=== PATIENT | female | born 1980 | race Hispanic/Latino ===

== ENCOUNTER 2017-06-26 11:50 | Emergency (ER) | payer MEDICAID ==
[2017-06-26 12:19] LABS: BASOPHILS % (AUTO) 0.8 % (0.0-5.0); EOSINOPHILS % (AUTO) 0.3 % (0.0-8.0); HEMATOCRIT 31.6 % (36-48); LYMPHOCYTES % (AUTO) 16.5 % (21.0-51.0); MEAN CORPUSCULAR HEMOGLOBIN 20.9 pg (27.0-33.0); MEAN CORPUSCULAR HGB CONC 32.6 g/dL (32.0-36.0); MEAN CORPUSCULAR VOLUME 64.1 fL (79-99); NEUTROPHILS % (AUTO) 74.4 % (40.0-77.0); NUCLEATED RED BLOOD CELLS 0.1 % (0.0-0.19); PLATELET COUNT (AUTO) 607 K/uL (130-400); RED BLOOD CELL COUNT(AUTO) 4.93 MIL/uL (4.00-5.50); RED CELL DISTRIBUTION WIDTH 17.7 % (11.0-15.5); WHITE BLOOD COUNT (AUTO) 10.1 K/uL (4.8-10.8)
[2017-06-26 12:29] LABS: APPEARANCE,URINE Turbid (CLEAR); BILIRUBIN,URINE Negative (NEGATIVE); COLOR,URINE Yellow (YELLOW); GLUCOSE, URINE (UA) Negative (NEGATIVE); KETONES,URINE Trace mg/dL (NEGATIVE); LEUKOCYTE ESTERASE ,URINE Small (NEGATIVE); NITRATE,URINE Negative (NEGATIVE); OCCULT BLOOD,URINE Large (NEGATIVE); PROTEIN,URINE Trace (NEGATIVE); UROBILINOGEN,URINE 0.2 mg/dL (0.2-1.0)
[2017-06-26 12:46] LABS: BILIRUBIN,TOTAL 0.5 mg/dL (0.2-1.0); TOTAL PROTEIN, SERUM 8.4 g/dL (6.0-8.3)
[2017-06-26] MEDS ORDERED: KETOROLAC TROMETHAMINE 30MG/ML ONE (12:51)
[2017-06-26] MEDS ORDERED: ONDANSETRON HCL MDV 20ML 2 MG/ML VIAL ONE (12:51)
[2017-06-26 13:03] LABS: POTASSIUM 2.7 mmol/L (3.5-5.1)
[2017-06-26 13:15] LABS: BACTERIA,URINE Moderate /HPF (None Seen); MUCUS,URINE Many LPF (None Seen); SQUAMOUS EPITHELIAL CELL,UR Many /HPF (0-2); WBC,URINE 0-1 /HPF (0-1)
[2017-06-26] MEDS ORDERED: MAG HYDROX/AL HYDROX/SIMETH ES 30 ML SUSP UDCUP ONE (14:23)
[2017-06-26] MEDS ORDERED: POTASSIUM BICARB/CIT AC 25 MEQ TABLET.EFF ONE (14:23)
[2017-06-26] MEDS ORDERED: LIDOCAINE HCL 2% VISCOUS 15 ML UDCUP ONE (14:23)
[2017-06-26] MEDS ORDERED: POTASSIUM CHLORIDE 20 MEQ ERTAB PO ONE (14:36)
== END 2017-06-26 15:29 | disposition home or self-care (01) ==
LOC: EDH 11:50
DX: K29.00 Acute gastritis without bleeding (principal); E87.6 Hypokalemia; K21.9 Gastro-esophageal reflux disease without esophagitis; Z86.018 Personal history of other benign neoplasm; Z87.891 Personal history of nicotine dependence
CPT/HCPCS: 36415; 76705; 80053; 81001; 81025; 83690; 85025; 96374; 96375; 99285; J1885

== ENCOUNTER 2024-09-20 12:36 | Emergency (ER) | payer MEDICAID, OTHER ==
[~2024-09-20] VITALS: Ht 157.5 cm; Wt 77.1 kg
--- NOTE | 2024-09-20 12:48 | ERN ---
ED Note History of Present Illness Stated Complaint: BLOODY STOOL Chief Complaint: Diarrhea Time Seen by MD: 12:37 Dictation: PATIENT IS A 44-YEAR-OLD FEMALE STATES SHE HAS HAD DIARRHEA FOR SEVEN DAYS IN THE LAST DAY OR TWO SHE SEEN SOME BLOOD IN THE STOOL. SHE STATES SHE HAS ALSO HAD CRAMPING TO HER ABDOMEN FOR THE SAME AMOUNT OF TIME. NO FEVER NO CHILLS NO NAUSEA VOMITING. NO PRIMARY CARE DOCTOR. SHE STATES SHE HAS A HISTORY OF GASTRIC ISSUES HOWEVER ALWAYS GOES TO EMERGENCY ROOMS. SHE STATES EVERYONE IN THE HOME EATEN THE SAME FOOD SHE IS EATEN AND NOBODY ELSE IS SICK. Allergies: Coded Allergies: No Known Drug Allergies (Verified Allergy, 12/07/11) Home Meds Active Scripts Dicyclomine HCl (Bentyl) 20 Mg Tab, 20 MG PO Q6HPRN PRN for Abdominal cramping/pain, #20 TAB Prov:HEBER SORENSON NP 09/20/24 Ciprofloxacin HCl (Cipro) 500 Mg Tablet, 1 TAB PO BID for 7 Days, #14 TAB 0 Refills Prov:HEBER SORENSON NP 09/20/24 Metronidazole (Metronidazole) 250 Mg Tablet, 1 TAB PO TID for 7 Days, #21 TAB 0 Refills Prov:HEBER SORENSON [employer] 09/20/24 Past Medical History Past Medical History: GERD Surgical History: Surgical History Other: LIPOMA History: Not Applicable LMP: Sep 10, 2024 RN Note Reviewed/Agreed w/PFSH: Yes Review of System Dictation CONSTITUTIONAL: NEGATIVE EXCEPT FOR HPI HEAD/FACE: NEGATIVE EXCEPT FOR HPI EENT: NEGATIVE EXCEPT FOR HPI RESPIRATORY: NEGATIVE EXCEPT FOR HPI GASTROINTESTINAL/ABDOMINAL: NEGATIVE EXCEPT FOR HPI ABDOMINAL CRAMPING WITH BLOOD-TINGED DIARRHEA SEVEN DAYS GENITOURINARY: NEGATIVE EXCEPT FOR HPI MUSCULOSKELETAL: NEGATIVE EXCEPT FOR HPI INTEGUMENTARY: NEGATIVE EXCEPT FOR HPI NEUROLOGICAL/PSYCH: NEGATIVE EXCEPT FOR HPI HEMATOLOGIC/LYMPHATIC: NEGATIVE EXCEPT FOR HPI ALL SYSTEMS NEGATIVE, EXCEPT NOTED ABOVE. 13 POINT REVIEW OF SYSTEMS ASSESSED AND ALL NEGATIVE EXCEPT FOR ABOVE. Initial Vital Sign VS Vital Signs Date Time Temp Pulse Resp B/P (MAP) Pulse Ox O2 Delivery O2 Flow Rate FiO2 09/20/24 12:39 98.2 108 20 121/79 100 Room Air 0 09/20/24 13:18 21 Physical Exam Dictation VITAL SIGNS REVIEWED GENERAL APPEARANCE: ALERT, ORIENTED X 3, MILD ACUTE DISTRESS, WELL DEVELOPED, NOURISHED. OBESE HEAD AND FACE: NON-TRAUMATIC. EYES: PERRL, PINK CONJUNCTIVAS, EYELID NO TRAUMA, ANTERIOR CHAMBER WITH ARCUS SENILIS. EARS: PINNAS INTACT AND NO SIGNS OF TRAUMA OR ERYTHEMA EAR CANALS CLEAR AND NO DISCHARGE TM NO ERYTHEMA NOSE: NO DISCHARGE, NO BLEEDING. OROPHARYNX: MOUTH NORMAL, TONGUE PINK, PHARYNX CLEAR,NO ERYTHEMA, TONSILS NO EXUDATES, NO ABSCESSES NOTED, MUCOUS MEMBRANE MOIST NECK: SUPPLE, NON-TENDER, NO THYROMEGALY, NO MASSES, NO JVD, NO BRUITS BREAST:DEFERRED CHEST:NO TENDERNESS, NO CREPITUS, NO PARADOXICAL MOVEMENT, NO RETRACTIONS LUNGS:CLEAR, WELL-VENTILATED, SYMMETRIC, NO RALES, NO WHEEZING, NO RHONCHI, NO STRIDOR, GOOD BREATH SOUNDS BILATERALLY HEART: REGULAR RATE, REGULAR RHYTHM, NO MURMUR, NO GALLOPS VASCULAR: NO PERIPHERAL EDEMA, ABDOMEN: SOFT, POSITIVE BOWEL SOUNDS/HYPERACTIVE, NONDISTENDED, NO GUARDING, NONTENDER, NO REBOUND, NO MASSES NO HEPATOMEGALY, NO SPLENOMEGALY, NO IRVIN'S SIGN, NO HERNIAS. NO FOCAL TENDERNESS RECTAL: DEFERRED GENITAL: DEFERRED NEUROLOGICAL: NORMAL SPEECH, MOTOR FUNCTION INTACT, SENSORY FUNCTION INTACT MUSCULOSKELETAL: NECK NONTENDER, FULL RANGE OF MOTION, BACK NONTENDER, FULL RANGE OF MOTION, EXTREMITIES: NONTENDER, FULL RANGE OF MOTION SKIN: COLOR PINK, DRY, NO TURGOR, NO RASH, NO LACERATIONS, NO ABRASIONS, NO CONTUSIONS. LYMPHATIC: DEFERRED Results (Laboratory/Radiology) Laboratory/Radiology Laboratory Tests Test 09/20/24 13:02 09/20/24 14:55 White Blood Count 8.7 K/uL (4.8-10.8) Red Blood Count 4.70 MIL/uL (4.00-5.50) Hemoglobin 10.2 g/dL (12.0-16.0) L Hematocrit 31.9 % (36-48) L Mean Corpuscular Volume 67.9 fL (79-99) L Mean Corpuscular Hemoglobin 21.7 pg (27.0-33.0) L Mean Corpuscular Hemoglobin Concent 32.0 g/dL (32.0-36.0) Red Cell Distribution Width 16.6 % (11.0-15.5) H Platelet Count 530 K/uL (130-400) H Mean Platelet Volume 10.4 fL (7.5-10.5) Immature Granulocyte % (Auto) 0.5 % (0-1) Neutrophils (%) (Auto) 76.2 % (40.0-77.0) Lymphocytes (%) (Auto) 14.5 % (21.0-51.0) L Monocytes (%) (Auto) 7.6 % (3.0-13.0) Eosinophils (%) (Auto) 0.6 % (0.0-8.0) Basophils (%) (Auto) 0.6 % (0.0-5.0) Neutrophils # (Auto) 6.6 K/uL (1.8-7.7) Lymphocytes # (Auto) 1.3 K/uL (1.0-4.8) Monocytes # (Auto) 0.7 K/uL (0.1-1.0) Eosinophils # (Auto) 0.05 K/uL (0.00-0.70) Basophils # (Auto) 0.05 K/uL (0.00-0.20) Absolute Immature Granulocyte (auto 0.04 K/uL (0-1) Nucleated Red Blood Cells 0.0 % (0.0-0.19) Red Blood Cell Morphology See comments Sodium Level 142 mmol/L (136-145) Potassium Level 3.5 mmol/L (3.5-5.1) Chloride Level 103 mmol/L (101-111) Carbon Dioxide Level 29 mmol/L (21-32) Blood Urea Nitrogen 6 mg/dL (7-18) L Creatinine 0.7 mg/dL (0.5-1.0) Glomerular Filtration Rate Calc 109 mL/min (>90) Random Glucose 125 mg/dL (70-105) H Total Calcium 9.1 mg/dL (8.5-10.1) Lipase 16 U/L (16-77) Urine Color YELLOW (YELLOW) Urine Appearance CLOUDY (CLEAR) H Urine pH 5.5 (5.0-8.0) Urine Specific [place] 1.018 (1.001-1.031) Urine Protein 10 mg/dL (NEGATIVE) H Urine Glucose (UA) NEGATIVE mg/dL (NEGATIVE) Urine Ketones 10 mg/dL (NEGATIVE) H Urine Occult Blood MODERATE (NEGATIVE) H Urine Nitrate NEGATIVE (NEGATIVE) Urine Bilirubin NEGATIVE mg/dL (NEGATIVE) Urine Urobilinogen 0.2 mg/dL (0.2-1.0) Urine Leukocyte Esterase NEGATIVE Tuan/uL Urine RBC 0-1 /HPF (0-1) Urine WBC 2-5 /HPF (0-1) H Urine Squamous Epithelial Cells MOD /HPF (0-2) Urine Bacteria RARE /HPF (None Seen) Labs Reviewed?: Yes ED Course ED Course Orders Procedure Category Date Status Time Cbc With Differential LAB 09/20/24 Complete 12:44 Urinalysis Profile LAB 09/20/24 Complete 12:44 Lipase LAB 09/20/24 Complete 12:44 Basic Metabolic Panel LAB 09/20/24 Complete 12:44 0.9%Nacl 1000ml (Ns PHA 09/20/24 Complete 1000ml) 15:00 Ketorolac PHA 09/20/24 Complete Tromethamine 30mg/Ml 15:00 Dicyclomine Hcl PHA 09/20/24 Complete (Bentyl 20mg Inj) 15:00 Current Medications Medications (Trade) Dose Ordered Sig/Layne Route PRN Reason Start Time Stop Time Status Last Admin Dose Admin Dicyclomine HCl (Bentyl 20mg Inj) 20 mg ONCE ONCE IM 09/20/24 15:00 09/20/24 15:01 DC 09/20/24 15:08 Ketorolac Tromethamine (toRADol) 30 mg ONCE ONCE IVP 09/20/24 15:00 09/20/24 14:53 DC Sodium Chloride 1,000 ml @ 0 mls/hr ONCE ONCE IV 09/20/24 15:00 09/20/24 15:01 DC 09/20/24 15:08 Vital Signs Date Time Temp Pulse Resp B/P (MAP) Pulse Ox O2 Delivery O2 Flow Rate FiO2 09/20/24 13:18 98.2 102 20 121/79 98 Room Air* 0 21 09/20/24 12:39 98.2 108 20 121/79 100 Room Air 0 1600/patient states she feels markedly improved after treatment with fluids and Toradol and Bentyl. She is aware that this is a food poisoning and does not re present a GI bleed. Hemoglobin is stable compared to her hemoglobin from [place] [facility] [place] Be discharge patient home with Flagyl and Aron with Bentyl and told to see her doctor when she can. Additionally I advised her I would like to write her out for 24 hours for the antibiotics and some rest, she said she could not do that because she spent her whole vacation staying home last week with diarrhea. Not have any more time off Medical Decision Making MDM Medical decision-making based on basic labs for diarrhea. Patient was given IV fluids Toradol and Bentyl for abdominal cramping Patient has a chronic anemia and no change in hemoglobin since 2018. She will be discharged home with Flagyl/Cipro/Bentyl Information on clear liquid diet and may advance diet slowly tomorrow until regular. DX & DISP Disposition: Discharge Departure Impression: Primary Impression: Food poisoning Additional Impressions: Diarrhea, Chronic anemia Condition: Stable Scripts Dicyclomine HCl (Bentyl) 20 Mg Tab 20 MG PO Q6HPRN PRN for Abdominal cramping/pain, #20 TAB Prov: HEBER SORENSON NP 09/20/24 Ciprofloxacin HCl (Cipro) 500 Mg Tablet 1 TAB PO BID for 7 Days, #14 TAB 0 Refills Prov: HEBER SORENSON NP 09/20/24 Metronidazole (Metronidazole) 250 Mg Tablet 1 TAB PO TID for 7 Days, #21 TAB 0 Refills Prov: HEBER SORENSON NP 09/20/24 Referrals: NIEVES FISHMAN MD (PCP) Time of Disposition: 15:57 I have reviewed the case, and I agree with, Diagnosis and Plan HEBER SORENSON NP Sep 20, 2024 12:48 TORO MORALES DO Sep 20, 2024 17:44
[2024-09-20 13:18] VITALS: BP 121/79; PULSE 102; RESP 20; TEMP 98.3; O2SAT 98
[2024-09-20 13:31] LABS: CREATININE 0.7 mg/dL (0.5-1.0); POTASSIUM 3.5 mmol/L (3.5-5.1)
[2024-09-20 13:32] LABS: BASOPHILS # (AUTO) 0.05 K/uL (0.00-0.20); BASOPHILS % (AUTO) 0.6 % (0.0-5.0); EOSINOPHILS # (AUTO) 0.05 K/uL (0.00-0.70); EOSINOPHILS % (AUTO) 0.6 % (0.0-8.0); HEMATOCRIT 31.9 % (36-48); IMMATURE GRANULOCYTE ABSOLUTE 0.04 K/uL (0-1); LYMPHOCYTES # (AUTO) 1.3 K/uL (1.0-4.8); LYMPHOCYTES % (AUTO) 14.5 % (21.0-51.0); MEAN CORPUSCULAR HEMOGLOBIN 21.7 pg (27.0-33.0); MEAN CORPUSCULAR VOLUME 67.9 fL (79-99); MONOCYTES # (AUTO) 0.7 K/uL (0.1-1.0); MONOCYTES % (AUTO) 7.6 % (3.0-13.0); NEUTROPHILS # (AUTO) 6.6 K/uL (1.8-7.7); NEUTROPHILS % (AUTO) 76.2 % (40.0-77.0); PLATELET COUNT (AUTO) 530 K/uL (130-400); RED CELL DISTRIBUTION WIDTH 16.6 % (11.0-15.5); WHITE BLOOD COUNT (AUTO) 8.7 K/uL (4.8-10.8)
[2024-09-20] MEDS ORDERED: ketOROlac 30MG VIAL (30MG/ML) IVP ONE (15:00)
[2024-09-20] MEDS: 0.9%NACL 1000ML 1,000 ML IV ONE (15:08)
[2024-09-20] MEDS: DICYCLOMINE 20MG (10MG/ML) AMP IM ONE (15:08)
[2024-09-20 15:12] LABS: APPEARANCE,URINE CLOUDY (CLEAR); BILIRUBIN,URINE NEGATIVE (NEGATIVE); COLOR,URINE YELLOW (YELLOW); GLUCOSE, URINE (UA) NEGATIVE (NEGATIVE); KETONES,URINE 10 mg/dL (NEGATIVE); LEUKOCYTE ESTERASE ,URINE NEGATIVE Leu/uL (NEGATIVE); NITRATE,URINE NEGATIVE (NEGATIVE); OCCULT BLOOD,URINE MODERATE (NEGATIVE); PH,URINE 5.5 (5.0-8.0); PROTEIN,URINE 10 mg/dL (NEGATIVE); UROBILINOGEN,URINE 0.2 mg/dL (0.2-1.0)
[2024-09-20 15:16] LABS: ADD UA MICROSCOPIC YES
[2024-09-20 15:20] LABS: BACTERIA,URINE RARE /HPF (None Seen); MUCUS,URINE FEW LPF (None Seen); RBC,URINE 0-1 /HPF (0-1); SQUAMOUS EPITHELIAL CELL,UR MOD /HPF (0-2)
[2024-09-20] MEDS ORDERED: CIPR-278 PO (15:59)
[2024-09-20] MEDS ORDERED: METR-361 PO (15:59)
[2024-09-20] MEDS ORDERED: DICY20TA2 PO (15:59)
== END 2024-09-20 16:19 | disposition home or self-care (01) ==
LOC: EDH 12:36
DX: A05.9 Bacterial foodborne intoxication, unspecified (principal); D64.9 Anemia, unspecified; Z79.899 Other long term (current) drug therapy
CPT/HCPCS: 99283; 96360; 80048; 83690; 85025; 81001; 36415; 96372; J7030; J0500